=== PATIENT | male | born 1990 | race African-American/Black ===

== ENCOUNTER 2017-02-10 03:55 | Emergency (ER) | payer OTHER, BC ==
[2017-02-10] MEDS ORDERED: ACETAMINOPHEN 325 MG TABLET PO ONE (04:58)
[2017-02-10] MEDS ORDERED: NORMAL SALINE 1000 ML 1,000 ML IV PRN (06:20)
[2017-02-10] MEDS ORDERED: DEXAMETHASONE SOD PHOS INJ 10 MG/1 ML VIAL IV ONE (06:20)
[2017-02-10] MEDS ORDERED: CLINDAMYCIN 600 MG/D5W RTU 50 ML IV ONE (06:50)
--- NOTE | 2017-02-10 06:51 | ER Document Report ---
ED General - General Chief Complaint: Fever Stated Complaint: HEADACHE AND FEVER - HPI Patient complains to provider of: fever shortness throat Onset: Other - 3 days Notes: Patient coming in for sore throat ongoing for last 3 days. Patient states fever also for the last 3 days. Patient has been taking Augmentin from a previous infection. Patient states he has been taken one tablet twice a day for the last 3 days. Patient states he has had strep throat in the past similar to in the past. Patient also complains of myalgias and weakness. Patient denies any recent travel. Patient does state he has a slight headache however he has no neck pain. Patient is able to tolerate his secretions. Patient denies any other antibiotics recent travel patient states he has had sick children and household. - Related Data Allergies/Adverse Reactions: shellfish derived Allergy (Verified 02/10/17 03:59) Past Medical History - Social History Smoking Status: Current Every Day Smoker Chew tobacco use (# tins/day): No Frequency of alcohol use: None Drug Abuse: None Family History: Reviewed & Not Pertinent Renal/ Medical History: Denies: Hx Peritoneal Dialysis Review of Systems - Review of Systems Constitutional: Fever EENT: Throat pain Cardiovascular: No symptoms reported Respiratory: No symptoms reported Gastrointestinal: No symptoms reported Genitourinary: No symptoms reported Male Genitourinary: No symptoms reported Musculoskeletal: No symptoms reported Skin: No symptoms reported Hematologic/Lymphatic: No symptoms reported Neurological/Psychological: No symptoms reported -: Yes All other systems reviewed and negative Physical Exam - Vital signs Vitals: Temp Pulse Resp BP Pulse Ox 102.9 F H 138 H 18 118/69 96 02/10/17 04:04 02/10/17 04:04 02/10/17 04:04 02/10/17 04:04 02/10/17 04:04 Interpretation: Normal - General General appearance: Appears well, Alert - HEENT Head: Normocephalic, Atraumatic Eyes: Normal Cornea: Normal Extraocular movements intact: Yes Pupils: PERRL Ears: Normal External canal: Normal Tympanic membrane: Normal Sinus: Normal Nasal: Normal Mouth/Lips: Normal Pharynx: Erythema, Exudate. No: Peritonsillar abscess, Potential airway comprom. Neck: Normal. No: Brudzinski, Kernig's, Meningismus, Neck mass, Shotty nodes - Respiratory Respiratory status: No respiratory distress Chest status: Nontender Breath sounds: Normal Chest palpation: Normal - Cardiovascular Rhythm: Regular Heart sounds: Normal auscultation Murmur: No - Abdominal Inspection: Normal Distension: No distension Bowel sounds: Normal Tenderness: Nontender Organomegaly: No organomegaly - Back Back: Normal, Nontender - Extremities General upper extremity: Normal inspection, Nontender, Normal color, Normal ROM , Normal temperature General lower extremity: Normal inspection, Nontender, Normal color, Normal ROM , Normal temperature, Normal weight bearing. No: Rossy's sign - Neurological Neuro grossly intact: Yes Cognition: Normal Orientation: AAOx4 [place] Coma Scale Eye Opening: Spontaneous [place] Coma Scale Verbal: Oriented [place] Coma Scale Motor: Obeys Commands [place] Coma Scale Total: 15 Speech: Normal Motor strength normal: LUE, RUE, LLE, RLE Sensory: Normal - Psychological Associated symptoms: Normal affect, Normal mood - Skin Skin Temperature: Warm Skin Moisture: Dry Skin Color: Normal Course - Re-evaluation Re-evalutation: 02/10/17 06:49 Patient's rapid strep returned negative however patient's evaluation is consistent with tonsillitis. Patient is Robert on Augmentin with no resolution. Will switch to antibiotics over to clindamycin. I will check out other basic lab work. 02/10/17 08:16 Patient with elevated white count. My strep and full ones are negative. I do think patient probably is strep positive he's been on Augmentin however did not complete his initial prescription therefore think he may have some slight resistance patient will be started on clindamycin. Educated patient that he would need to follow-up with primary care physician also he will need to complete his antibiotics. Patient feeling better no signs of very compromised RE has improved patient was encouraged to drink fluids at home. Patient will be discharged. - Vital Signs Vital signs: Temp Pulse Resp BP Pulse Ox 99.7 F 109 H 18 126/59 H 98 02/10/17 08:00 02/10/17 08:00 02/10/17 04:04 02/10/17 08:00 02/10/17 08:00 - Laboratory Result Diagrams: 02/10/17 06:42 02/10/17 06:42 Laboratory results interpreted by me: 02/10/17 06:42 WBC 22.1 H Band Neutrophils % 1 L Lymphocytes % (Manual) 11 L Abs Neuts (Manual) 17.2 H Abs Monocytes (Manual) 2.4 H Discharge - Discharge Clinical Impression: Tonsillitis Condition: Good Disposition: HOME, SELF-CARE Instructions: Tonsillitis ([facility]), Fever ([facility]), Use of Kxtr-Uae-Yvlziep Ibuprofen ([facility]) Additional Instructions: Laboratory data shows signs of infection. Examination is consistent with tonsillitis. We are going to switch her antibiotics from the Augmentin to clindamycin. Please make sure to take clindamycin as directed please take all the antibiotic. Also gave you a prescription for Magic mouthwash to help numb up his throat to aid in eating and drinking. I would highly recommend to continue to take Tylenol 650mg and Motrin 600mg alternating every 4 hours for fever control. He may also take Tylenol Motrin for pain control. Please make sure to drink plenty water as that your dehydrated today. Prescriptions: Magic Mouthwash 5 ml PO Q6 PRN #120 PRN Reason: Clindamycin HCl [Cleocin 150 mg Capsule] 150 mg PO Q6 7 Days Prednisone [Deltasone] 60 mg PO DAILY 5 Days Forms: Return to Work
[2017-02-10 06:58] LABS: HEMATOCRIT 45.2 % (37.9-51.0); HEMOGLOBIN 15.2 g/dL (13.5-17.0); HGB HCT DIFFERENCE 0.4; MEAN CORPUSCULAR HEMOGLOBIN 31.8 pg (27.0-33.4); MEAN CORPUSCULAR HGB CONC 33.6 g/dL (32.0-36.0); MEAN CORPUSCULAR VOLUME 95 fl (80-97); RED BLOOD COUNT 4.77 10^6/uL (4.35-5.55); RED CELL DISTRIBUTION WIDTH 13.6 % (11.5-14.0); WHITE BLOOD COUNT 22.1 10^3/uL (4.0-10.5)
[2017-02-10 07:14] LABS: ANION GAP 14 (5-19); BLOOD UREA NITROGEN 12 mg/dL (7-20); CALCIUM 9.7 mg/dL (8.4-10.2); CARBON DIOXIDE 23 mmol/L (22-30); CHLORIDE 100 mmol/L (98-107); CREATININE RESULT 1.19 mg/dL (0.52-1.25); GLUCOSE 104 mg/dL (75-110); POTASSIUM 4.3 mmol/L (3.6-5.0); SODIUM 137.4 mmol/L (137-145)
[2017-02-10 07:26] LABS: BAND NEUTROPHILS % (MANUAL) 1 % (3-5); BASOPHILS % (MANUAL) 0 % (0-2); EOSINOPHILS % (MANUAL) 0 % (0-6); LYMPHOCYTES % (MANUAL) 11 % (13-45); TOTAL CELLS COUNTED 100
[2017-02-10 07:27] LABS: RBC MORPHOLOGY COMMENT NORMO-CYTIC/CHROMIC; TOXIC GRANULATION 1+
[2017-02-10] MEDS ORDERED: KETOROLAC TROMETHAMINE INJ/PF 30 MG/1 ML SDV IV ONE (07:37)
[2017-02-10 08:10] VITALS: BP 126/59
== END 2017-02-10 08:57 | disposition home or self-care (01) ==
LOC: ER 03:55
DX: J03.90 Acute tonsillitis, unspecified (principal); R50.9 Fever, unspecified; D72.829 Elevated white blood cell count, unspecified; M79.1 Myalgia; R53.1 Weakness; R51 Headache; F17.200 Nicotine dependence, unspecified, uncomplicated; Z91.013 Allergy to seafood
CPT/HCPCS: 99284; 96361; 96375; 96365; 36415; 87040; 87070; 87880; 85025; 86308; 80048; 87804; J1885; J7030; J1100

== ENCOUNTER 2017-02-24 17:09 | Emergency (ER) | payer OTHER, BC ==
[2017-02-24] MEDS ORDERED: CLINDAMYCIN HCL 150 MG CAPSULE PO ONE (17:55)
[2017-02-24] MEDS ORDERED: DEXAMETHASONE 4 MG TABLET PO ONE (17:55)
--- NOTE | 2017-02-24 17:58 | ER Document Report ---
ED ENT - General Chief Complaint: Sore Throat Stated Complaint: SORE THROAT Time Seen by Provider: 02/24/17 17:51 Notes: The patient is a 26-year-old male, past medical history prior episodes of tonsillitis, presents with 2 days of fever and sore throat. This third episode of tonsillitis in 3 months. He was seen a month ago and discharged home on clindamycin, which he said cleared up his infection. He has not seen an ENT yet. Denies cough, difficulty swallowing, neck stiffness, chest pain, shortness of breath or stridor. TRAVEL OUTSIDE OF THE [place] IN LAST 30 DAYS: No - Related Data Allergies/Adverse Reactions: shellfish derived Allergy (Verified 02/10/17 03:59) Past Medical History - General Information source: Patient - Social History Smoking Status: Unknown if Ever Smoked Chew tobacco use (# tins/day): No Frequency of alcohol use: None Drug Abuse: None Family History: Reviewed & Not Pertinent Patient has suicidal ideation: No Patient has homicidal ideation: No Renal/ Medical History: Denies: Hx Peritoneal Dialysis Review of Systems - Review of Systems Notes: REVIEW OF SYSTEMS: CONSTITUTIONAL: +fevers, -chills EENT: -eye pain, -difficulty swallowing, -nasal congestion, +sore throat CARDIOVASCULAR:-chest pain, -syncope. RESPIRATORY: -cough, -SOB GASTROINTESTINAL: -abdominal pain, -nausea, -vomiting, -diarrhea GENITOURINARY: -dysuria, -hematuria MUSCULOSKELETAL: -back pain, -neck pain SKIN: -rash or skin lesions. HEMATOLOGIC: -easy bruising or bleeding. LYMPHATIC: -swollen, enlarged glands. NEUROLOGICAL: -altered mental status or loss of consciousness, -headache, - neurologic symptoms PSYCHIATRIC: -anxiety, -depression. ALL OTHER SYSTEMS REVIEWED AND NEGATIVE. Physical Exam - Vital signs Vitals: Temp Pulse Resp BP Pulse Ox 101.9 F H 110 H 16 129/74 H 97 02/24/17 17:28 02/24/17 17:28 02/24/17 17:28 02/24/17 17:28 02/24/17 17:28 - Notes Notes: PHYSICAL EXAMINATION: GENERAL: Well-appearing, well-nourished and in no acute distress. HEAD: Atraumatic, normocephalic. EYES: Pupils equal round and reactive to light, extraocular movements intact, sclera anicteric, conjunctiva are normal. ENT: B/L tonsillar swelling with exudates, symmetrical, no PROGRAM WRITER visualized, nares patent, oropharynx clear without exudates. Moist mucous membranes. NECK: Normal range of motion, supple with anterior cervical lymphadenopathy LUNGS: Breath sounds clear to auscultation bilaterally and equal. No wheezes rales or rhonchi. HEART: Tachcyardic, regular rhythm ABDOMEN: Soft, nontender, normoactive bowel sounds. No guarding, no rebound. No masses appreciated. EXTREMITIES: Normal range of motion, no pitting or edema. No cyanosis. NEUROLOGICAL: Cranial nerves grossly intact. Normal speech, normal gait. Normal sensory, motor, and reflex exams. PSYCH: Normal mood, normal affect. SKIN: Warm, Dry, normal turgor, no rashes or lesions noted. Course - Re-evaluation Re-evalutation: Patient has 4 out of 4 Centor criteria. No evidence of epiglottitis, PROGRAM WRITER or RPA at this time. He is able to swallow. Since clindamycin helped him in the past resolve his symptoms, will treat with clindamycin and Decadron to help with swelling. Instructed him to follow-up with ENT. - Vital Signs Vital signs: Temp Pulse Resp BP Pulse Ox 101.9 F H 110 H 16 129/74 H 97 02/24/17 17:28 02/24/17 17:28 02/24/17 17:28 02/24/17 17:28 02/24/17 17:28 Discharge - Discharge Clinical Impression: Acute pharyngitis Qualifiers: Pharyngitis/tonsillitis etiology: other specified organisms Qualified Code(s): J02.8 - Acute pharyngitis due to other specified organisms Condition: Stable Disposition: HOME, SELF-CARE Additional Instructions: SORE THROAT: Sore throats may be caused by viruses, bacteria, or fungi. Most are due to a virus, and must get better on their own. Bacterial sore throats, particularly those due to "strep," need treatment with antibiotics. If an antibiotic is prescribed, be sure to take the medication for a full 10 days. Failure to take the antibiotic can result in complications such as rheumatic fever. Sometimes, an injection of antibiotics is given instead of pills or liquid. This single "shot" is equal in effectiveness to the oral medication. To relieve symptoms, take acetaminophen for pain. Sip clear liquids frequently, or eat popsicles or ice chips. Anesthetic sprays or lozenges may help. Make sure the air in the room is not too dry. Avoid using decongestants or antihistamines. Call the doctor if there is no improvement in two days, or if you have difficulty breathing, increasing throat pain, high fever, rash, or frequent vomiting. STREP THROAT: Your sore throat is due to the streptococcus germ (strep throat). Strep throat usually makes you feel quite ill with fever and aches, headache, swollen sore throat, and tender bumps under the angles of the jaw. Strep throat requires antibiotic treatment. Although the sore throat may go away by itself, complications such as rheumatic fever, kidney disease, or throat abscess can occur. We usually prescribe antibiotics by mouth. Be sure to take the medicine until it's gone. If you stop early, the strep may come back. If you are vomiting, are severely ill, or can't remember to take pills, we can give you an antibiotic shot. Take acetaminophen or ibuprofen for pain and fever. Sip frequent clear liquids, or use popsicles or ice chips. Anesthetic sprays or lozenges may help. Make sure the air in the room is not too dry. Avoid using decongestants or antihistamines. Call the doctor if there is no improvement in three days, or if you have difficulty breathing, increasing throat pain, high fever, rash, or frequent vomiting. STEROID MEDICATION: You have been given a medicine of the cortisone/steroid class. This medication is used to control inflammation or allergy. It is usually only given for a short period of time, until the acute process subsides. There are usually no side effects from short-term use of cortisone-like medications. Some persons feel an increased sense of well-being and are not sleepy at bedtime. Long-term use of cortisone medications is best avoided, unless required for a severe condition. If your condition does not remit, or relapses after the course of corticosteroid medication, you should consult your physician. FOLLOW-UP CARE: If you have been referred to a physician for follow-up care, call the physician s office for an appointment as you were instructed or within the next two days. If you experience worsening or a significant change in your symptoms, notify the physician immediately or return to the Emergency Department at any time for re-evaluation. Prescriptions: Clindamycin HCl 300 mg PO Q8H 10 Days Referrals: GRANT PEDERESN MD [ACTIVE STAFF] - Follow up as needed
[2017-02-24 18:26] VITALS: BP 120/75
== END 2017-02-24 18:28 | disposition home or self-care (01) ==
LOC: ER 17:09
DX: J02.9 Acute pharyngitis, unspecified (principal); R50.9 Fever, unspecified; Z91.013 Allergy to seafood; R00.0 Tachycardia, unspecified
CPT/HCPCS: 99282

== ENCOUNTER 2017-04-13 05:31 | Emergency (ER) | payer OTHER, BC ==
[2017-04-13] MEDS ORDERED: DEXAMETHASONE SOD PHOS INJ 10 MG/1 ML VIAL IM ONE (07:14)
[2017-04-13] MEDS ORDERED: PENICILLIN G BENZATHINE 1.2 MILLION UNIT/2 ML DISP.SYRIN IM ONE (07:14)
--- NOTE | 2017-04-13 07:18 | ER Document Report ---
ED General - General Chief Complaint: Sore Throat Stated Complaint: BACK/THROAT PAIN Time Seen by Provider: 04/13/17 06:06 Mode of Arrival: Ambulatory Information source: Patient Notes: 26-year-old male presents with complaints of a sore throat, patient admits to fevers and chills denies any nausea or vomiting. Patient admits to intermittent productive cough. Patient notes he has had 2 previous similar episodes in the past few months. TRAVEL OUTSIDE OF THE [place] IN LAST 30 DAYS: No - HPI Onset: Yesterday Onset/Duration: Sudden Quality of pain: Achy Severity: Mild Pain Level: 1 Associated symptoms: Sore throat Exacerbated by: Food Relieved by: Denies Similar symptoms previously: Yes Recently seen / treated by doctor: Yes - Related Data Allergies/Adverse Reactions: shellfish derived Allergy (Verified 04/13/17 06:42) Past Medical History - Social History Smoking Status: Never Smoker Cigarette use (# per day): No Chew tobacco use (# tins/day): No Smoking Education Provided: No Family History: Reviewed & Not Pertinent Renal/ Medical History: Denies: Hx Peritoneal Dialysis Review of Systems - Review of Systems Notes: REVIEW OF SYSTEMS: CONSTITUTIONAL : Admits to fevers and chills EENT: Admits to sore throat CARDIOVASCULAR: Denies chest pain. Denies palpitations or racing or irregular heart beat. Denies ankle edema. RESPIRATORY: Admits to intermittent productive cough GASTROINTESTINAL: Denies abdominal pain or distention. Denies nausea, vomiting , or diarrhea. Denies blood in vomitus, stools, or per rectum. Denies black, tarry stools. Denies constipation. GENITOURINARY: Denies difficulty urinating, painful urination, burning, frequency, blood in urine, or discharge. MUSCULOSKELETAL: Denies back or neck pain or stiffness. Denies joint pain or swelling. SKIN: Denies rash, lesions or sores. HEMATOLOGIC : Denies easy bruising or bleeding. LYMPHATIC: Denies swollen, enlarged glands. NEUROLOGICAL: Denies confusion or altered mental status. Denies passing out or loss of consciousness. Denies dizziness or lightheadedness. Denies headache. Denies weakness or paralysis or loss of use of either side. Denies problems with gait or speech. Denies sensory loss, numbness, or tingling. Denies seizures. PSYCHIATRIC: Denies anxiety or stress. Denies depression, suicidal ideation, or homicidal ideation. ALL OTHER SYSTEMS REVIEWED AND NEGATIVE. Dictation was performed using [employer] voice recognition software PHYSICAL EXAMINATION: GENERAL: Well-appearing, well-nourished and in no acute distress. HEAD: Atraumatic, normocephalic. EYES: Pupils equal round and reactive to light, extraocular movements intact, sclera anicteric, conjunctiva are normal. ENT: Bilateral tonsillar enlargement with exudates +2 uvula midline airway patent NECK: Normal range of motion, supple without lymphadenopathy LUNGS: Breath sounds clear to auscultation bilaterally and equal. No wheezes rales or rhonchi. HEART: Regular rate and rhythm without murmurs ABDOMEN: Soft, nontender, nondistended abdomen. No guarding, no rebound. No masses appreciated. Musculoskeletal: Normal range of motion, no pitting or edema. No cyanosis. NEUROLOGICAL: Cranial nerves grossly intact. Normal speech, normal gait. Normal sensory, motor exams PSYCH: Normal mood, normal affect. SKIN: Warm, Dry, normal turgor, no rashes or lesions noted. Physical Exam - Vital signs Vitals: Temp Pulse Resp BP Pulse Ox 98.5 F 102 H 18 127/67 H 99 04/13/17 05:39 04/13/17 05:39 04/13/17 05:39 04/13/17 05:39 04/13/17 05:39 Course - Re-evaluation Re-evalutation: 04/13/17 07:34 On physical examination patient does have exudative pharyngitis, strep test was negative. Patient will be treated with Decadron and penicillin but given multiple previous episodes of similar complaints I will have the patient follow- up with ENT for further evaluation and care After performing a Medical Screening Examination, I estimate there is LOW risk for CENTRAL CORD SYNDROME, EPIDURAL MASS LESION, SEVERE SPINAL STENOSIS, ARTERIAL DISSECTION TONSILLAR ABSCESS, MENINGITIS, or ACUTE CORONARY SYNDROME, thus I consider the discharge disposition reasonable. I have reevaluated this patient multiple times and no significant life threatening changes are noted. The patient and I have discussed the diagnosis and risks, and we agree with discharging home to follow-up on an outpatient basis with the understanding that symptoms and presentations can change. We also discussed returning to the Emergency Department immediately if new or worsening symptoms occur. We have discussed the symptoms which are most concerning (e.g., saddle anesthesia, urinary or bowel incontinence or retention, changing or worsening pain) that necessitate immediate return. - Vital Signs Vital signs: Temp Pulse Resp BP Pulse Ox 99.4 F 95 17 131/70 H 100 04/13/17 07:23 04/13/17 07:23 04/13/17 07:23 04/13/17 07:23 04/13/17 07:23 Discharge - Discharge Clinical Impression: Sore throat, Exudative pharyngitis Condition: Stable Disposition: HOME, SELF-CARE Instructions: Sore Throat ([facility]) Additional Instructions: Please contact the following office for an appointment tomorrow or returm immediately if there are any other concerns [facility] Address: [address] [place] [id number]
[2017-04-13 07:32] VITALS: BP 131/70
== END 2017-04-13 07:33 | disposition home or self-care (01) ==
LOC: ER 05:31
DX: J02.9 Acute pharyngitis, unspecified (principal); R50.9 Fever, unspecified; R05 Cough; Z91.013 Allergy to seafood
CPT/HCPCS: 99283; 96372; 87070; 87880; 87077; J0561; J1100

== ENCOUNTER → 2017-10-12 | Outpatient (CLI) | payer OTHER | LOC: OD 09:22 | PROVIDERS: ATTEND Otolaryngology | DX: J30.9 Allergic rhinitis, unspecified (principal) | CPT/HCPCS: 36415; 82785 ==

== ENCOUNTER → 2017-12-12 | Outpatient (CLI) | payer OTHER | LOC: OD 11:27 | PROVIDERS: ATTEND Otolaryngology | DX: J30.9 Allergic rhinitis, unspecified (principal) | CPT/HCPCS: 36415; 82785; 86003 ==

== ENCOUNTER 2018-02-06 07:02 | Day surgery (SDC) | payer OTHER ==
[2018-02-06] MEDS ORDERED: MIDAZOLAM 2 MG/2 ML INJ ONE (07:08)
[2018-02-06] MEDS ORDERED: DEXAMETHASONE SOD PHOS INJ 10 MG/1 ML VIAL ONE (07:09)
[2018-02-06] MEDS ORDERED: GLYCOPYRROLATE INJ 0.4 MG/2 ML VIAL ONE (07:09)
[2018-02-06] MEDS ORDERED: FENTANYL CITRATE INJ/PF 100 MCG/2 ML AMPUL ONE (07:09)
[2018-02-06] MEDS ORDERED: ONDANSETRON HCL INJ/PF 4 MG/2 ML SDV ONE (07:09)
[2018-02-06] MEDS ORDERED: PROPOFOL INJ 200 MG/20 ML VIAL IV ONE (07:09)
[2018-02-06] MEDS ORDERED: LIDOCAINE 2% INJ-PF (20 MG/ML) 10 ML AMPUL ONE (07:09)
[2018-02-06] MEDS ORDERED: SUCCINYLCHOLINE CHLORIDE INJ 200 MG/10 ML VIAL ONE (07:10)
[2018-02-06] MEDS ORDERED: BUPIVACAINE HCL 0.5%/EPI 1:200000 INJ 1.8 ML CARTRIDGE ONE (07:53)
--- NOTE | 2018-02-06 21:15 | SURGICARE OPERATIVE REPORT E ---
[facility] NAME: REY NORTON AGE: 27Y DATE OF SURGERY: 02/06/2018 ROOM: PREOPERATIVE DIAGNOSES: 1. RECURRENT ACUTE TONSILLITIS. 2. CHRONIC TONSILLITIS. 3. TONSILLAR HYPERTROPHY. POSTOPERATIVE DIAGNOSES: 1. RECURRENT ACUTE TONSILLITIS. 2. CHRONIC TONSILLITIS. 3. TONSILLAR HYPERTROPHY. OPERATION: Bilateral tonsillectomy, patient age greater than 12. SURGEON: KATIE JONES D.O. ANESTHESIA: General endotracheal tube. ANESTHESIA STAFF: CELE Javier. ESTIMATED BLOOD LOSS: 5 mL. FLUIDS: 700 mL. COMPLICATIONS: None. DRAINS: None. SPONGE COUNT: Verified. MATERIALS FORWARDED SPECIMEN: Left and right tonsillar tissue. FINDINGS: 1. The tonsils were noted to be 2 to 3+ in size, were cryptic in nature, and were with tonsillar debris present bilateral. 2. The soft palatal tissues were redundant in nature, and the uvula was otherwise unremarkable in appearance. INDICATIONS: This is a 27-year-old male patient who was seen and evaluated in the [facility] office. The patient had been referred for and he complained of a history of recurrent acute tonsillitis episodes requiring antibiotics. With the episodes, the patient experiences significant sore throat discomfort and decreased p.o. intake. The patient has also occasionally missed work due to these episodes over the years. 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 The patient clinically is also noted to have findings consistent with tonsillar hypertrophy. The patient is also with history of severe allergies, both seasonal and perennial, with allergy immunotherapy recommended and discussed with the patient, which he voiced an understanding of and agrees with. After extensive discussion with the patient, recommendation and plan is to proceed with tonsil surgery/tonsillectomy. The procedure and all of its risks and complications were all discussed in detail with the patient. He voiced an understanding of the described surgical plan, agreed to proceed, and consent was obtained. PROCEDURE: The patient was taken to the main operating room and placed on the operating room table in the supine position. Appropriate monitors were placed. Using mask and IV access, general anesthesia was induced. The patient was next transorally intubated without difficulty. The patient was rotated 90 degrees and positioned for tonsil surgery. The patient's lips, teeth, tongue and inside of the mouth were inspected and noted to be without defects. There was a mouth gag inserted. It was opened, and the patient was placed into suspension. There was a soft catheter placed through the patient's nose that was used to suspend the soft palate. Findings are as noted above. At this point, the plasma J-hook device was used to dissect and remove tonsillar tissue on each side. This device was also used to provide adequate hemostasis. Saline irritation was performed and suctioned. There was adequate hemostasis noted. The soft catheter was next released and removed from the patient's nose. The mouth gag was removed from the patient's mouth without difficulty. There was no damage to the lips, teeth, tongue, gums, or inside of the mouth. The patient was then returned to the anesthesia staff and was allowed to emerge from general anesthesia. The patient was extubated in the main operating room and was then transported to the post-anesthesia recovery unit in stable condition. There were no complications. DICTATING PHYSICIAN: KATIE JONES D.O. [id number] [facility]#: [id number] ID: [id number] JOB#: [id number] ACCT: [id number] cc:KATIE JONES D.O. >
== END 2018-02-06 10:17 | disposition home or self-care (01) ==
LOC: SC 07:02
PROVIDERS: ATTEND Otolaryngology
DX: J03.91 Acute recurrent tonsillitis, unspecified (principal); J35.01 Chronic tonsillitis; R06.09 Other forms of dyspnea; J34.2 Deviated nasal septum; J34.3 Hypertrophy of nasal turbinates; J30.9 Allergic rhinitis, unspecified; F17.210 Nicotine dependence, cigarettes, uncomplicated; G47.33 Obstructive sleep apnea (adult) (pediatric); G43.909 Migraine, unspecified, not intractable, without status migrainosus; Z79.899 Other long term (current) drug therapy
CPT/HCPCS: 88304 ×2; 42826; J2250; J3490 ×2; J3010; J0330; J2405; J2704; J1100; 170